=== PATIENT | female | born 1990 | race Caucasian/White ===

== ENCOUNTER 2016-12-20 21:08 | Inpatient (IN) | payer BC ==
[~2016-12-20] VITALS: Ht 170.2 cm; Wt 115.6 kg
[~2016-12-20 21:08] MED LIST: HYDR-3240 PO; IBUP200T48 PO; ONDA4TAB13 SL; OXYC-302 PO
[2016-12-20] MEDS ORDERED: ADENOSINE 6 MG/2 ML ONE (21:22)
[2016-12-20] MEDS ORDERED: MORPHINE SULFATE 4 MG/ML, 1ML IVPush PRN (21:30)
[2016-12-20] MEDS ORDERED: SODIUM CHLORIDE 0.9% 1,000ML IVBOLUS ONE ×3 (21:30→22:00)
[2016-12-20] MEDS ORDERED: SODIUM CHLORIDE FLUSH 10ML SYR IVF ONE (21:30)
[2016-12-20] MEDS ORDERED: ONDANSETRON 2MG/ML, 2ML IVPush ONE (21:30)
[2016-12-20] MEDS ORDERED: ADENOSINE 6 MG/2 ML IVPush ONE ×2 (21:30)
[2016-12-20] MEDS ORDERED: MORPHINE SULFATE 4 MG/ML, 1ML ONE (21:31)
[2016-12-20] MEDS ORDERED: ONDANSETRON 2MG/ML, 2ML ONE ×2 (21:31→21:44)
[2016-12-20 21:37] LABS: HEMOGLOBIN 13.2 g/dL (11.7-16.4)
[2016-12-20 21:46] LABS: ASPARTATE AMINO TRANSFERASE 53 U/L (15-37); BLOOD UREA NITROGEN 7 mg/dL (7-18)
[2016-12-20] MEDS ORDERED: DOCU-30 PO (23:14)
[2016-12-20 23:16] LABS: ICTOTEST NEGATIVE
[2016-12-20] MEDS ORDERED: PIPERACILLIN/TAZO/PMX 3.375GM 50 ML IV ONE (23:30)
[2016-12-20] MEDS ORDERED: VANCOMYCIN PER PHARMACY MC PRN (23:30)
[2016-12-21] MEDS ORDERED: ACETAMINOPHEN 325 MG TABLET PO PRN
[2016-12-21] MEDS ORDERED: VANCOMYCIN 2,000 MG in SODIUM CHLORIDE 0.9% 500 ML IV ONE
[2016-12-21] MEDS ORDERED: VANCOMYCIN PER PHARMACY MC PRN
[2016-12-21] MEDS: SODIUM CHLORIDE 0.9% 1,000 ML IV SCH ×3 (01:27→17:28)
[2016-12-21] MEDS: HYDROmorphone 2 MG/ML, 1ML IV PRN ×3 (01:28→10:26)
[2016-12-21] MEDS: HEPARIN 5,000 UNITS/ML, 1ML SQ SCH ×2 (01:37→08:00)
[2016-12-21] MEDS: BISACODYL 10 MG SUPP PR SCH ×2 (01:38→10:27)
[2016-12-21 02:00] VITALS: BP 134/89
[2016-12-21] MEDS ORDERED: PHARMACOKINETIC MONITORING MC PRN (02:00)
[2016-12-21] MEDS: PIPERACILLIN/TAZO/PMX 3.375GM 50 ML IV SCH ×4 (03:34→21:11)
[2016-12-21] MEDS ORDERED: OMNIPAQUE 350 MG/ML, 100ML BOTTLE ONE (03:37)
[2016-12-21 04:00] VITALS: BP 140/74
[2016-12-21 06:13] LABS: ASPARTATE AMINO TRANSFERASE 32 U/L (15-37); BLOOD UREA NITROGEN 5 mg/dL (7-18)
[2016-12-21 06:23] LABS: HEMOGLOBIN 11.2 g/dL (11.7-16.4)
[2016-12-21 13:33] VITALS: BP 124/82
[2016-12-21] MEDS ORDERED: MORPHINE SULFATE 4 MG/ML, 1ML ONE ×3 (13:39→19:03)
[2016-12-21] MEDS: morphine SULFATE 10 MG/ML, 1ML IVPush PRN ×4 (13:44→21:16)
[2016-12-21] MEDS: VANCOMYCIN 2,000 MG in SODIUM CHLORIDE 0.9% 500 ML IV SCH (14:41)
[2016-12-21 20:25] VITALS: BP 111/77
[2016-12-22] MEDS: VANCOMYCIN 2,000 MG in SODIUM CHLORIDE 0.9% 500 ML IV SCH (00:19)
[2016-12-22 02:12] VITALS: BP 138/85
[2016-12-22] MEDS: morphine SULFATE 10 MG/ML, 1ML IVPush PRN ×7 (02:39→22:51)
[2016-12-22] MEDS: SODIUM CHLORIDE 0.9% 1,000 ML IV SCH ×2 (02:40→17:06)
[2016-12-22] MEDS: PIPERACILLIN/TAZO/PMX 3.375GM 50 ML IV SCH ×4 (03:56→22:44)
[2016-12-22 06:17] LABS: HEMOGLOBIN 10.8 g/dL (11.7-16.4)
[2016-12-22 06:28] LABS: BLOOD UREA NITROGEN 7 mg/dL (7-18)
[2016-12-22 06:35] VITALS: BP 124/73
[2016-12-22] MEDS ORDERED: POTASSIUM CHLORIDE 20 MEQ TAB.ER.PRT PO ONE (08:00)
[2016-12-22] MEDS: BISACODYL 10 MG SUPP PR SCH (11:38)
[2016-12-22 13:11] VITALS: BP 107/78
[2016-12-22] MEDS: ONDANSETRON 2MG/ML, 2ML IVP PRN (14:03)
[2016-12-22 20:06] VITALS: BP 125/88
[2016-12-23] MEDS: morphine SULFATE 10 MG/ML, 1ML IVPush PRN ×4 (00:59→09:15)
[2016-12-23 01:01] VITALS: BP 123/85
[2016-12-23] MEDS: SODIUM CHLORIDE 0.9% 1,000 ML IV SCH ×3 (01:24→23:59)
[2016-12-23] MEDS: ONDANSETRON 2MG/ML, 2ML IVP PRN ×2 (04:54→16:16)
[2016-12-23] MEDS: PIPERACILLIN/TAZO/PMX 3.375GM 50 ML IV SCH ×4 (04:54→22:26)
[2016-12-23 05:30] LABS: HEMOGLOBIN 10.3 g/dL (11.7-16.4)
[2016-12-23 05:43] LABS: BLOOD UREA NITROGEN 7 mg/dL (7-18)
[2016-12-23 06:37] VITALS: BP 115/77
[2016-12-23] MEDS: BISACODYL 10 MG SUPP PR SCH (09:00)
[2016-12-23] MEDS ORDERED: MORPHINE SULFATE 4 MG/ML, 1ML ONE (09:04)
[2016-12-23] MEDS ORDERED: MIDAZOLAM 1 MG/ML, 2ML ONE (12:46)
[2016-12-23] MEDS ORDERED: FENTANYL PF 250 MCG/5ML ONE (12:46)
[2016-12-23] MEDS ORDERED: PROPOFOL 10 MG/ML, 20ML ONE (13:00)
[2016-12-23] MEDS ORDERED: DEXAMETHASONE 4 MG/ML, 1ML ONE (13:00)
[2016-12-23] MEDS ORDERED: PHENYLEPHRINE 10 MG/ML ONE (13:00)
[2016-12-23] MEDS ORDERED: SUCCINYLCHOLINE 20 MG/ML, 10ML ONE (13:00)
[2016-12-23] MEDS ORDERED: ONDANSETRON 2MG/ML, 2ML ONE ×2 (13:00→14:09)
[2016-12-23] MEDS ORDERED: ROCURONIUM 10 MG/ML ONE (13:00)
[2016-12-23] MEDS ORDERED: INDOMETHACIN 50 MG SUPP.RECT ONE (13:58)
[2016-12-23] MEDS ORDERED: FENTANYL PF 100 MCG/2ML IV PRN (14:00)
[2016-12-23] MEDS ORDERED: ONDANSETRON 2MG/ML, 2ML IVPush PRN (14:00)
[2016-12-23] MEDS ORDERED: METOCLOPRAMIDE 5 MG/ML, 2ML IV PRN (14:00)
[2016-12-23] MEDS ORDERED: hydrALAzine 20 MG/ML, 1ML IV PRN (14:00)
[2016-12-23] MEDS ORDERED: OXYcodone 5 MG/5 ML ORAL.SOL UDC PO PRN (14:00)
[2016-12-23] MEDS ORDERED: ACETAMINOPHEN 325 MG TABLET PO PRN (14:00)
[2016-12-23] MEDS ORDERED: HYDROmorphone 1 MG/ML, 1ML IV PRN (14:00)
[2016-12-23] MEDS ORDERED: MEPERIDINE/PF 25MG/0.5ML IVPush PRN (14:00)
[2016-12-23] MEDS ORDERED: PROMETHAZINE 25 MG/ML, 1ML IV PRN (14:00)
[2016-12-23] MEDS ORDERED: LABETALOL 5MG/ML, 20ML IV PRN (14:00)
[2016-12-23] MEDS ORDERED: MIDAZOLAM 1 MG/ML, 5ML IV PRN (14:00)
[2016-12-23] MEDS ORDERED: FENTANYL PF 100 MCG/2ML ONE (14:12)
[2016-12-23] MEDS ORDERED: INDOMETHACIN 50 MG SUPP.RECT PR ONE (14:30)
[2016-12-23 16:51] VITALS: BP 124/87
[2016-12-23 20:25] VITALS: BP 120/80
[2016-12-24 01:16] VITALS: BP 111/78
[2016-12-24] MEDS: SODIUM CHLORIDE 0.9% 1,000 ML IV SCH ×2 (04:00→10:40)
[2016-12-24] MEDS: PIPERACILLIN/TAZO/PMX 3.375GM 50 ML IV SCH ×2 (05:05→10:36)
[2016-12-24 06:22] LABS: HEMOGLOBIN 9.9 g/dL (11.7-16.4)
[2016-12-24 06:37] LABS: BLOOD UREA NITROGEN 11 mg/dL (7-18)
[2016-12-24 06:41] LABS: ASPARTATE AMINO TRANSFERASE 13 U/L (15-37)
[2016-12-24 07:44] VITALS: BP 125/85
[2016-12-24] MEDS: BISACODYL 10 MG SUPP PR SCH (09:00)
[2016-12-24] MEDS ORDERED: CIPR500T3 PO (11:13)
== END 2016-12-24 14:10 | disposition home or self-care (01) | DRG 862 ==
LOC: ED 22:04 → EDIP 23:28 → 4EST 12-21 01:00 → DCLOUNGE 12-24 13:55
PROVIDERS: ADMIT Family Medicine; ATTEND Family Medicine
PROC: 0FC98ZZ Extirpation of Matter from Common Bile Duct, Via Natural or Artificial Opening Endoscopic (ICD-10-PCS; 2016-12-23)
PROC: 0F798DZ Dilation of Common Bile Duct with Intraluminal Device, Via Natural or Artificial Opening Endoscopic (ICD-10-PCS; 2016-12-23)
PROC: BF101ZZ Fluoroscopy of Bile Ducts using Low Osmolar Contrast (ICD-10-PCS; 2016-12-23)
PROC: 0T9B70Z Drainage of Bladder with Drainage Device, Via Natural or Artificial Opening (ICD-10-PCS; principal; 2016-12-23 12:30)
DX: K68.11 Postprocedural retroperitoneal abscess (principal); A41.9 Sepsis, unspecified organism; J96.00 Acute respiratory failure, unspecified whether with hypoxia or hypercapnia; R65.20 Severe sepsis without septic shock; K91.89 Other postprocedural complications and disorders of digestive system; E44.1 Mild protein-calorie malnutrition; E87.1 Hypo-osmolality and hyponatremia; J98.11 Atelectasis; R18.8 Other ascites; D75.89 Other specified diseases of blood and blood-forming organs; E66.9 Obesity, unspecified; E86.0 Dehydration; K80.50 Calculus of bile duct without cholangitis or cholecystitis without obstruction; Z83.3 Family history of diabetes mellitus; Z90.49 Acquired absence of other specified parts of digestive tract; Z68.39 Body mass index [BMI] 39.0-39.9, adult; Z82.61 Family history of arthritis
CPT/HCPCS: 36415; 71010; 71275; 74177; 74328; 78226; 80048; 80053; 81001; 83605; 83735; 84436; 84443; 84703; 85025; 87040; 87086; 87324; 93005; 96361; 96374; 96375; J1100; J1170; J1644; J2250; J2405; J2543; J2704; J3010; J3370; Q9967; A9537; C1894; C2625; C9898; J0330; J2270; J2370; J7030; J7040

== ENCOUNTER 2017-01-01 11:03 | Day surgery (SDC) | payer BC ==
[~2017-01-01] VITALS: Ht 170.2 cm; Wt 105.0 kg
[~2017-01-01 11:03] MED LIST changes: +CIPR500T3 PO; +DOCU-30 PO
[2017-01-01] MEDS ORDERED: SODIUM CHLORIDE 0.9% 1,000 ML IV SCH (12:26)
[2017-01-01 12:27] VITALS: BP 117/86
[2017-01-01 12:56] LABS: HCG UR OBC PASS
[2017-01-01] MEDS ORDERED: FENTANYL PF 100 MCG/2ML ONE ×2 (13:59→14:24)
[2017-01-01] MEDS ORDERED: NALOXONE 1 MG/ML, 2ML ONE (13:59)
[2017-01-01] MEDS ORDERED: MIDAZOLAM 1 MG/ML, 5ML ONE ×2 (13:59→14:23)
[2017-01-01] MEDS ORDERED: FLUMAZENIL 0.1 MG/1 ML, 5ML ONE (14:00)
[2017-01-01] MEDS ORDERED: LIDOCAINE 2%, 20ML ONE (14:00)
== END 2017-01-01 17:00 | disposition home or self-care (01) ==
LOC: OUT 11:03 → EDSTATUS 13:00 → OUT 17:00
PROVIDERS: ATTEND Surgery
DX: K82.8 Other specified diseases of gallbladder (principal)
CPT/HCPCS: 49405; 81025; C1729; C1769; C1894; J2250; J3010; J3490; J7030; 75989; 99156; 99157; J2310

== ENCOUNTER 2017-01-01 15:05 | Inpatient (IN) | payer BC ==
[~2017-01-01] VITALS: Ht 170.2 cm; Wt 104.5 kg
[2017-01-01] MEDS ORDERED: SODIUM CHLORIDE FLUSH 10ML SYR IVF ONE (15:30)
[2017-01-01 15:53] LABS: HEMOGLOBIN 11.6 g/dL (11.7-16.4)
[2017-01-01] MEDS ORDERED: PIPERACILLIN/TAZO/PMX 3.375GM 50 ML IV ONE (16:00)
[2017-01-01 16:03] LABS: ASPARTATE AMINO TRANSFERASE 25 U/L (15-37); BLOOD UREA NITROGEN 8 mg/dL (7-18)
[2017-01-01] MEDS ORDERED: PROMETHAZINE 25 MG/ML, 1ML IM PRN (17:00)
[2017-01-01] MEDS ORDERED: POLYETHYLENE GLYCOL 17 GM PACKET PO PRN (17:00)
[2017-01-01] MEDS ORDERED: IBUPROFEN 200 MG TABLET PO PRN (17:00)
[2017-01-01] MEDS ORDERED: PIPERACILLIN/TAZO/PMX 3.375GM 50 ML ONE (17:34)
[2017-01-01] MEDS ORDERED: MORPHINE SULFATE 4 MG/ML, 1ML ONE (17:34)
[2017-01-01] MEDS ORDERED: ONDANSETRON 2MG/ML, 2ML ONE (17:34)
[2017-01-01] MEDS: MORPHINE SULFATE 4 MG/ML, 1ML IVPush PRN (17:45)
[2017-01-01] MEDS: SODIUM CHLORIDE 0.9% 1,000 ML IV SCH (17:45)
[2017-01-01] MEDS: ONDANSETRON 2MG/ML, 2ML IVP PRN (17:45)
[2017-01-01 18:30] VITALS: BP 128/84
[2017-01-01 19:56] VITALS: BP 118/79
[2017-01-01] MEDS: FAMOTIDINE 20 MG/2 ML IV SCH (20:32)
[2017-01-01] MEDS: HYDROcodone/APAP 5/325 TABLET PO PRN (22:59)
[2017-01-02 01:00] VITALS: BP 112/76
[2017-01-02 05:49] LABS: BLOOD UREA NITROGEN 8 mg/dL (7-18)
[2017-01-02 05:55] LABS: HEMOGLOBIN 10.2 g/dL (11.7-16.4)
[2017-01-02] MEDS: PIPERACILLIN/TAZO/PMX 3.375GM 50 ML IV SCH ×4 (06:15→18:40)
[2017-01-02] MEDS: SODIUM CHLORIDE 0.9% 1,000 ML IV SCH ×5 (06:15→22:36)
[2017-01-02 06:50] VITALS: BP 136/88
[2017-01-02] MEDS: FAMOTIDINE 20 MG/2 ML IV SCH ×2 (08:05→20:33)
[2017-01-02] MEDS: ONDANSETRON 2MG/ML, 2ML IVP PRN ×3 (08:06→22:36)
[2017-01-02] MEDS: MORPHINE SULFATE 4 MG/ML, 1ML IVPush PRN (08:06)
[2017-01-02] MEDS: SENNA/DOCUSATE TABLET PO SCH (08:14)
[2017-01-02 13:09] VITALS: BP 126/85
[2017-01-02] MEDS: HYDROcodone/APAP 5/325 TABLET PO PRN ×2 (17:59→22:36)
[2017-01-02 20:19] VITALS: BP 126/84
[2017-01-03] MEDS: PIPERACILLIN/TAZO/PMX 3.375GM 50 ML IV SCH ×4 (00:44→19:08)
[2017-01-03 02:35] VITALS: BP 126/81
[2017-01-03] MEDS: HYDROcodone/APAP 5/325 TABLET PO PRN ×4 (02:56→21:32)
[2017-01-03] MEDS: SODIUM CHLORIDE 0.9% 1,000 ML IV SCH ×3 (05:52→17:35)
[2017-01-03 06:46] VITALS: BP 114/76
[2017-01-03] MEDS: SENNA/DOCUSATE TABLET PO SCH (09:00)
[2017-01-03] MEDS: FAMOTIDINE 20 MG/2 ML IV SCH ×2 (09:05→21:33)
[2017-01-03] MEDS ORDERED: VORICONAZOLE 200 MG IVPB SCH (11:00)
[2017-01-03] MEDS: VORICONAZOLE IV SCH ×2 (12:42→23:50)
[2017-01-03] MEDS: DEXTROSE 5% IV SCH ×2 (12:42→23:50)
[2017-01-03 12:47] VITALS: BP 114/81
[2017-01-03 19:17] VITALS: BP 125/85
[2017-01-03] MEDS: ONDANSETRON 2MG/ML, 2ML IVP PRN (21:32)
[2017-01-04] MEDS: PIPERACILLIN/TAZO/PMX 3.375GM 50 ML IV SCH ×4 (00:58→18:44)
[2017-01-04] MEDS: SODIUM CHLORIDE 0.9% 1,000 ML IV SCH ×4 (00:59→21:40)
[2017-01-04 01:07] VITALS: BP 110/77
[2017-01-04] MEDS: HYDROcodone/APAP 5/325 TABLET PO PRN ×3 (05:04→21:40)
[2017-01-04 05:12] LABS: BLOOD UREA NITROGEN 7 mg/dL (7-18)
[2017-01-04] MEDS: ONDANSETRON 2MG/ML, 2ML IVP PRN ×2 (06:42→14:44)
[2017-01-04 07:37] VITALS: BP 114/80
[2017-01-04] MEDS: FAMOTIDINE 20 MG/2 ML IV SCH ×2 (08:45→21:40)
[2017-01-04] MEDS: SENNA/DOCUSATE TABLET PO SCH (08:52)
[2017-01-04] MEDS: VORICONAZOLE 400 MG in DEXTROSE 5% 100 ML IV SCH (13:06)
[2017-01-04 16:48] VITALS: BP 108/73
[2017-01-04 20:09] VITALS: BP 148/83
[2017-01-05] MEDS: PIPERACILLIN/TAZO/PMX 3.375GM 50 ML IV SCH ×2 (00:04→06:01)
[2017-01-05 00:23] VITALS: BP 113/78
[2017-01-05 01:04] VITALS: BP 113/73
[2017-01-05] MEDS: VORICONAZOLE 400 MG in DEXTROSE 5% 100 ML IV SCH ×2 (01:08→15:24)
[2017-01-05] MEDS: HYDROcodone/APAP 5/325 TABLET PO PRN ×2 (01:54→06:01)
[2017-01-05 05:11] LABS: HEMOGLOBIN 9.9 g/dL (11.7-16.4)
[2017-01-05 05:23] LABS: BLOOD UREA NITROGEN 6 mg/dL (7-18)
[2017-01-05] MEDS: SODIUM CHLORIDE 0.9% 1,000 ML IV SCH (06:02)
[2017-01-05 07:18] VITALS: BP 111/75
[2017-01-05] MEDS ORDERED: POTASSIUM CHLORIDE 20 MEQ TAB.ER.PRT PO ONE (09:30)
[2017-01-05] MEDS: FAMOTIDINE 20 MG/2 ML IV SCH ×2 (10:41→20:39)
[2017-01-05] MEDS: SENNA/DOCUSATE TABLET PO SCH (10:42)
[2017-01-05] MEDS: ONDANSETRON 2MG/ML, 2ML IVP PRN ×2 (10:53→18:34)
[2017-01-05 12:53] VITALS: BP 114/84
[2017-01-05] MEDS: AMOXICILLIN/CLAV 875-125MG TABLET PO SCH (15:24)
[2017-01-05 20:37] VITALS: BP 127/93
[2017-01-06 01:13] VITALS: BP 116/81
[2017-01-06] MEDS: ONDANSETRON 2MG/ML, 2ML IVP PRN ×2 (01:21→09:26)
[2017-01-06] MEDS: HYDROcodone/APAP 5/325 TABLET PO PRN (01:21)
[2017-01-06] MEDS: AMOXICILLIN/CLAV 875-125MG TABLET PO SCH ×2 (03:22→17:02)
[2017-01-06] MEDS: VORICONAZOLE 400 MG in DEXTROSE 5% 100 ML IV SCH ×2 (03:22→17:17)
[2017-01-06 05:43] LABS: BLOOD UREA NITROGEN 4 mg/dL (7-18)
[2017-01-06 06:38] VITALS: BP 108/76
[2017-01-06] MEDS: SENNA/DOCUSATE TABLET PO SCH (09:00)
[2017-01-06] MEDS: FAMOTIDINE 20 MG/2 ML IV SCH (09:17)
[2017-01-06 13:35] VITALS: BP 115/80
[2017-01-06 18:48] VITALS: BP 143/92
[2017-01-06] MEDS: FAMOTIDINE 20 MG TABLET PO SCH (20:05)
[2017-01-07 00:55] VITALS: BP 137/93
[2017-01-07] MEDS: VORICONAZOLE 400 MG in DEXTROSE 5% 100 ML IV SCH (04:45)
[2017-01-07] MEDS: AMOXICILLIN/CLAV 875-125MG TABLET PO SCH ×2 (04:45→16:41)
[2017-01-07 07:54] VITALS: BP 120/81
[2017-01-07] MEDS ORDERED: POTASSIUM CHLORIDE 20 MEQ TAB.ER.PRT PO ONE ×2 (08:30)
[2017-01-07] MEDS ORDERED: MAGNESIUM SULFATE PMX 2GM/50ML 50 ML IV ONE (08:30)
[2017-01-07] MEDS: FLUCONAZOLE 200 MG TABLET PO SCH (08:30)
[2017-01-07] MEDS: SENNA/DOCUSATE TABLET PO SCH (09:00)
[2017-01-07] MEDS: FAMOTIDINE 20 MG TABLET PO SCH ×2 (09:43→22:00)
[2017-01-07 14:00] VITALS: BP 109/68
[2017-01-07 19:49] VITALS: BP 138/61
[2017-01-08 01:56] VITALS: BP 127/83
[2017-01-08] MEDS: AMOXICILLIN/CLAV 875-125MG TABLET PO SCH ×2 (05:00→14:59)
[2017-01-08 05:20] LABS: HEMOGLOBIN 10.6 g/dL (11.7-16.4)
[2017-01-08 05:39] LABS: BLOOD UREA NITROGEN 9 mg/dL (7-18)
[2017-01-08 07:20] VITALS: BP 126/87
[2017-01-08] MEDS ORDERED: POTASSIUM CHLORIDE 20 MEQ TAB.ER.PRT PO ONE (08:00)
[2017-01-08] MEDS: SENNA/DOCUSATE TABLET PO SCH (09:00)
[2017-01-08] MEDS: ONDANSETRON 2MG/ML, 2ML IVP PRN (09:19)
[2017-01-08] MEDS: FLUCONAZOLE 200 MG TABLET PO SCH (09:19)
[2017-01-08] MEDS: FAMOTIDINE 20 MG TABLET PO SCH ×2 (09:19→21:44)
[2017-01-08 14:44] VITALS: BP 126/85
[2017-01-08 20:27] VITALS: BP 123/85
[2017-01-09] MEDS: AMOXICILLIN/CLAV 875-125MG TABLET PO SCH ×2 (00:27→12:20)
[2017-01-09 01:01] VITALS: BP 123/71
[2017-01-09 05:30] LABS: BLOOD UREA NITROGEN 10 mg/dL (7-18)
[2017-01-09 09:00] VITALS: BP 129/85
[2017-01-09] MEDS ORDERED: PROMETHAZINE 25MG TABLET PO PRN (10:00)
[2017-01-09] MEDS: FAMOTIDINE 20 MG TABLET PO SCH ×2 (10:23→20:08)
[2017-01-09] MEDS: SENNA/DOCUSATE TABLET PO SCH (10:24)
[2017-01-09] MEDS: FLUCONAZOLE 200 MG TABLET PO SCH (10:24)
[2017-01-09] MEDS ORDERED: POTASSIUM CHLORIDE 20 MEQ in SODIUM CHLORIDE 0.9% 250 ML IV ONE (11:30)
[2017-01-09 13:43] VITALS: BP 126/87
[2017-01-09 19:09] VITALS: BP 127/87
[2017-01-10] MEDS: AMOXICILLIN/CLAV 875-125MG TABLET PO SCH ×2 (00:20→13:23)
[2017-01-10 02:36] VITALS: BP 127/86
[2017-01-10 05:58] LABS: BLOOD UREA NITROGEN 11 mg/dL (7-18)
[2017-01-10 08:20] VITALS: BP 124/82
[2017-01-10] MEDS: SENNA/DOCUSATE TABLET PO SCH (10:00)
[2017-01-10] MEDS: FLUCONAZOLE 200 MG TABLET PO SCH (10:00)
[2017-01-10] MEDS: FAMOTIDINE 20 MG TABLET PO SCH (10:00)
[2017-01-10] MEDS ORDERED: FLUC200T PO (12:03)
[2017-01-10] MEDS ORDERED: AMOX1TAB12 PO (12:03)
[2017-01-10 13:23] VITALS: BP 129/92
== END 2017-01-10 14:54 | disposition home or self-care (01) | DRG 871 ==
LOC: ED 16:20 → EDIP 16:28 → 4EST 18:19
PROVIDERS: ADMIT Internal Medicine; ATTEND Internal Medicine
DX: A41.9 Sepsis, unspecified organism (principal); J96.01 Acute respiratory failure with hypoxia; E44.0 Moderate protein-calorie malnutrition; K81.2 Acute cholecystitis with chronic cholecystitis; B49 Unspecified mycosis; E66.01 Morbid (severe) obesity due to excess calories; E87.6 Hypokalemia; E66.9 Obesity, unspecified; N18.2 Chronic kidney disease, stage 2 (mild); D63.8 Anemia in other chronic diseases classified elsewhere; Z68.37 Body mass index [BMI] 37.0-37.9, adult; Z90.49 Acquired absence of other specified parts of digestive tract; Z83.3 Family history of diabetes mellitus; Z82.61 Family history of arthritis
CPT/HCPCS: 36415; 71010; 80048; 80053; 82040; 82570; 83605; 83735; 83880; 84300; 85025; 87040; 87070; 87075; 87106; 87186; 87205; 87324; 93005; 93306; J2405; J2543; J2550; J3465; J3480; J3475; J7030; J7050; S0028

== ENCOUNTER 2017-03-12 10:51 | Day surgery (SDC) | payer BC ==
[~2017-03-12] VITALS: Ht 170.2 cm; Wt 104.0 kg
[~2017-03-12 10:51] MED LIST changes: +AMOX1TAB12 PO; +FLUC200T PO
[2017-03-12] MEDS ORDERED: MIDAZOLAM 1 MG/ML, 2ML ONE (11:44)
[2017-03-12] MEDS ORDERED: FENTANYL PF 250 MCG/5ML ONE (11:44)
[2017-03-12] MEDS ORDERED: NONE PER PT (11:45)
[2017-03-12] MEDS ORDERED: LACTATED RINGERS 1,000 ML IV SCH (11:45)
[2017-03-12 11:46] VITALS: BP 130/85
[2017-03-12] MEDS ORDERED: GLYCOPYRROLATE 0.2MG/1ML ONE (12:45)
[2017-03-12] MEDS ORDERED: ONDANSETRON 2MG/ML, 2ML ONE (12:45)
[2017-03-12] MEDS ORDERED: DEXAMETHASONE 4 MG/ML, 1ML ONE (12:45)
[2017-03-12] MEDS ORDERED: NEOSTIGMINE 1 MG/ML, 10ML ONE (12:45)
[2017-03-12] MEDS ORDERED: PROPOFOL 10 MG/ML, 20ML ONE (12:45)
[2017-03-12] MEDS ORDERED: KETOROLAC 30 MG/1 ML ONE (12:45)
[2017-03-12 13:16] LABS: HCG UR OBC PASS
[2017-03-12] MEDS ORDERED: OMNIPAQUE 350 MG/ML, 50 ML BOTTLE ONE (13:29)
[2017-03-12] MEDS ORDERED: ONDANSETRON 2MG/ML, 2ML IVPush PRN (13:30)
[2017-03-12] MEDS ORDERED: METOPROLOL 1 MG/ML, 5ML IV PRN (13:30)
[2017-03-12] MEDS ORDERED: ALBUTEROL SULFATE 2.5 MG/3 ML NPPB PRN (13:30)
[2017-03-12] MEDS ORDERED: MEPERIDINE/PF 25MG/0.5ML IVPush PRN (13:30)
[2017-03-12] MEDS ORDERED: OXYcodone 5 MG/5 ML ORAL.SOL UDC PO PRN (13:30)
[2017-03-12] MEDS ORDERED: hydrALAzine 20 MG/ML, 1ML IV PRN (13:30)
[2017-03-12] MEDS ORDERED: HYDROmorphone 1 MG/ML, 1ML IV PRN (13:30)
[2017-03-12] MEDS ORDERED: LABETALOL 5MG/ML, 20ML IV PRN (13:30)
[2017-03-12] MEDS ORDERED: FENTANYL PF 100 MCG/2ML IV PRN (13:30)
[2017-03-12] MEDS ORDERED: ACETAMINOPHEN 325 MG TABLET PO PRN (13:30)
[2017-03-12] MEDS ORDERED: MIDAZOLAM 1 MG/ML, 2ML IV PRN (13:30)
[2017-03-12] MEDS ORDERED: EPHEDRINE 50 MG/ML, 1ML IVPush PRN (13:30)
[2017-03-12] MEDS ORDERED: PROMETHAZINE 25 MG/ML, 1ML IV PRN (13:30)
[2017-03-12] MEDS ORDERED: ACETAMINOPHEN 650 MG/20.3 ML UDC ONE (13:39)
[2017-03-12] MEDS ORDERED: ACETAMINOPHEN 325 MG TABLET ONE (13:39)
== END 2017-03-12 15:00 | disposition home or self-care (01) ==
LOC: OR 10:51
PROVIDERS: ATTEND Internal Medicine Gastroenterology
DX: T85.898A Other specified complication of other internal prosthetic devices, implants and grafts, initial encounter (principal); K83.8 Other specified diseases of biliary tract; Y83.8 Other surgical procedures as the cause of abnormal reaction of the patient, or of later complication, without mention of misadventure at the time of the procedure; Z90.49 Acquired absence of other specified parts of digestive tract; E66.01 Morbid (severe) obesity due to excess calories; Z68.35 Body mass index [BMI] 35.0-35.9, adult
CPT/HCPCS: 43264; 43275; 74328; 81025; C1769; J1100; J1885; J2250; J2405; J2704; J2710; J3010; J7120; Q9967; J3490